=== PATIENT | male | born 1975 | race Caucasian/White ===

== ENCOUNTER 2017-02-04 14:32 | Outpatient (CLI) | payer MEDICAID | END 2017-02-04 23:59 | DX: R63.4 Abnormal weight loss (principal); F41.1 Generalized anxiety disorder; F32.9 Major depressive disorder, single episode, unspecified ==

== ENCOUNTER 2017-03-22 15:00 | Outpatient (CLI) | payer MEDICAID ==
--- NOTE | 2017-03-22 17:02 | Ultrasound Report ---
RIGHT UPPER QUADRANT ULTRASOUND: 03/22/2017 CLINICAL INDICATION: IBS. TECHNIQUE: Real-time scanning was performed with customer response representative static images obtained. The liver measures 13.1 cm. Hepatic echotexture is normal. No intrahepatic biliary dilatation or fo ariana parenchymal lesion is present. The common bile duct measures 3 mm. The gallbladder is normal. The right kidney measures 10.6 cm, and demonstrates no hydronephrosis. No free fluid is present. IMPRESSION: NORMAL RIGHT UPPER QUADRANT ULTRASOUND. JOB #: [id number] EXT JOB #:[id number]
== END 2017-03-22 15:01 | disposition home or self-care (01) ==
LOC: DI 15:00
PROVIDERS: ATTEND Physician Assistant Medical
DX: K58.9 Irritable bowel syndrome, unspecified (principal); R11.0 Nausea
CPT/HCPCS: 76705

== ENCOUNTER 2017-03-28 13:22 | Outpatient (CLI) | payer MEDICAID ==
[2017-03-28] MEDS ORDERED: SINCALIDE IV ONE (17:01)
[2017-03-28] MEDS ORDERED: SODIUM CHLORIDE 0.9% IV ONE (17:01)
--- NOTE | 2017-03-29 08:15 | Nuclear Medicine Report ---
EXAM: HEPATOBILIARY SCAN WITH CCK/KINEVAC ADMINISTRATION EXAM DATE: 03/28/2017 12:59 PM. CLINICAL HISTORY: NAUSEA. COMPARISON: 03/22/2017. TECHNIQUE: Following the intravenous administration of 5 mCi of Tc99m Mebrofenin, a hepatobiliary sca n was done centered on the liver and gallbladder in multiple sequential images and projections. Following the intravenous administration of 1.1 mcg of CCK/ Kinevac over the course of approximately 45 minutes, dynamic imaging was done and the gallbladder ejection fraction was calculated. FINDINGS: Normal extraction of tracer from the blood pool indicating normal hepatocellular function. The liver size and shape is grossly within normal limits. Appearance of tracer in the biliary tree as early as 10 minutes, within normal limits. Appearance of tracer in the gallbladder as early as 20 minutes, within normal limits, with good progr ession of filling throughout the remainder of the initial hour. Appearance of tracer in the small bowel as early as 20 minutes, within normal limits. With CCK administration, the gallbladder demonstrates an effective contraction. The gallbladder eject ion fraction is calculated to be 60%, well above the lower limit of normal of 40% . No evidence of enteric reflux into the stomach. No significant collection of tracer remaining in the common bile duct by the end of the study. IMPRESSION: 1. Normal uptake and excretion of activity by the liver. 2. Normal filling of the gallbladder and excretion into the bowel. 3. Normal gallbladder ejection fraction of 60%. [facility] Referring Provider Line: [phone] SITE ID: [id number]
== END 2017-03-28 13:23 | disposition home or self-care (01) ==
LOC: DI 13:22
PROVIDERS: ATTEND Physician Assistant Medical
DX: R11.0 Nausea (principal)
CPT/HCPCS: 78227; A9537

== ENCOUNTER 2018-02-01 16:45 | Outpatient (CLI) | payer MEDICAID ==
--- NOTE | 2018-02-02 11:08 | CT Report ---
EXAM: CT BONY PELVIS WITHOUT CONTRAST EXAM DATE: 02/01/2018 04:56 PM. CLINICAL HISTORY: Bone lesion. COMPARISON: 04/29/2017. TECHNIQUE: Thin-section axial images were acquired of the pelvis without contrast. Post-processing: C oronal and sagittal reformats. Other: None. In accordance with CT protocol optimization, one or more of the following dose reduction techniques w ere utilized for this exam: automated exposure control, adjustment of mA and/or KV based on patient s ize, or use of iterative reconstructive technique. FINDINGS: Bones: Again seen are 2 bone lesions in the right ilium: 1. 0.9 cm well-circumscribed lytic lesion adjacent to right SI joint with sclerotic margin. Unchanged from prior. Appears nonaggressive. 2. 0.9 x 0.7 cm dense sclerotic bone island right ilium near anterior border of SI joint, stable. No new or suspicious bony lesions are seen. Few additional tiny bone islands in the bilateral proxima l femurs are densely sclerotic and stable. Sacroiliac Joints: No widening, erosions, or sclerosis. Symphysis Pubis: Unremarkable. Right Hip: The joint space is preserved. No calcified loose bodies. Left Hip: The joint space is preserved. No calcified loose bodies. Musculature: Normal. No fatty atrophy. Pelvic Cavity: The visualized bowel, bladder, and reproductive organs are unremarkable on this noncon trast exam. Other: No lymphadenopathy. No free air or free fluid. The other visualized soft tissues are unremarka ble. IMPRESSION: 1. Several small bone islands in the pelvis and proximal femurs are densely sclerotic and stable sinc e prior. These appear nonaggressive. 2. Well-circumscribed subcortical lytic lesion right ilium adjacent to SI joint with sclerotic margin is also stable from prior. Differential includes degenerative subchondral cyst versus old posttrauma tic or postinflammatory lesion. [facility] Referring Provider Line: [phone] SITE ID: [id number]
== END 2018-02-01 16:46 | disposition home or self-care (01) ==
LOC: DI 16:45
PROVIDERS: ATTEND Physician Assistant Medical
DX: M89.9 Disorder of bone, unspecified (principal)
CPT/HCPCS: 72192

== ENCOUNTER 2018-08-22 14:53 | Emergency (ER) | payer MEDICAID ==
[2018-08-22 15:10] VITALS: BP 105/89
--- NOTE | 2018-08-22 15:27 | ED Physician Documentation ---
History of Present Illness - Stated complaint Stated Complaint: NAUSEA/CRAMPING/CONSTIPATION/LIGHTHEADEDNESS - Chief complaint Chief Complaint: General - History obtained from History obtained from: Patient - History of Present Illness Timing: Other (ongoing for several years) Pain level max: 4 Pain level now: 0 Improved by: nothing Worsened by: nothing - Additonal information Additional information: Patient is a 43-year-old male who presents to the emergency department with multiple vague symptoms. He states that he has had abdominal cramping and nausea for the last month or so. He states he has felt tired and weak for the past several years. Has seen several doctors and had multiple tests run with no cause found. He does have a history of depression and anxiety, used to be on Effexor and Celexa, but stopped this quite a while ago. He states he still feels depressed at times. Is not currently suicidal or homicidal. He is not on any medications currently. No allergies to medication. His main issue today is intermittent nausea. Review of Systems Ten Systems: 10 systems reviewed and negative Constitutional: denies: Fever, Chills Ears: denies: Ear pain Nose: denies: Rhinorrhea / runny nose, Congestion GI: denies: Vomiting, Diarrhea Skin: denies: Rash Musculoskeletal: denies: Neck pain, Back pain Neurologic: denies: Headache PD PAST MEDICAL HISTORY - Past Medical History Past Medical History: Yes Cardiovascular: None Respiratory: None Neuro: None Endocrine/Autoimmune: None HEENT: None Psych: Depression, Anxiety Musculoskeletal: Osteoarthritis Other Past Medical History: gastrointestinal problems, weight loss, low white blood cell count, ibs - Past Surgical History Past Surgical History: No - Present Medications Home Medications: Ambulatory Orders Medication Instructions Recorded Confirmed Ondansetron Odt [Zofran] 4 mg TL Q6H PRN #10 tablet 08/22/18 - Allergies Allergies/Adverse Reactions: Allergies Allergy/AdvReac Type Severity Reaction Status Date / Time No Known Drug Allergies Allergy Verified 08/22/18 15:10 - Social History Does the pt smoke?: No Smoking Status: Never smoker Does the pt drink ETOH?: No Does the pt have substance abuse?: No - Immunizations Immunizations are current?: Yes - POLST Patient has POLST: No PD ED PE NORMAL - Vitals Vital signs reviewed: Yes - General General: Alert and oriented X 3 - HEENT HEENT: Moist mucous membranes - Neck Neck: Supple, no meningeal sign - Cardiac Cardiac: RRR, Strong equal pulses - Respiratory Respiratory: No respiratory distress, Clear bilaterally - Abdomen Abdomen: Normal bowel sounds, Soft, Non tender, Non distended - Derm Derm: Warm and dry - Neuro Neuro: Alert and oriented X 3 - Psych Psych: Normal mood, Normal affect Results - Vitals Vitals: Vital Signs - 24 hr 08/22/18 14:58 Temperature 36 C L Heart Rate 60 Respiratory 16 Rate Blood Pressure 105/89 H O2 Saturation 99 Oxygen O2 Source Room air - Labs Labs: Laboratory Tests 08/22/18 08/22/18 08/22/18 15:29 15:29 15:29 WBC 3.3 L RBC 4.60 L Hgb 15.7 Hct 43.5 MCV 94.4 H MCH 34.1 H MCHC 36.1 H RDW 11.7 L Plt Count 203 MPV 9.6 Neut # (Auto) 2.1 Lymph # (Auto) 0.8 L [place] # (Auto) 0.2 Eos # (Auto) 0.1 Baso # (Auto) 0.0 Absolute Nucleated RBC 0.00 Nucleated RBC % 0.1 Sodium 135 Potassium 4.1 Chloride 100 L Carbon Dioxide 27 Anion Gap 8.0 BUN 9 Creatinine 1.0 Estimated GFR (MDRD) 82 L Glucose 84 Calcium 9.2 Total Bilirubin 0.9 AST 20 ALT 15 Alkaline Phosphatase 90 Total Protein 7.3 Albumin 4.6 Globulin 2.7 Albumin/Globulin Ratio 1.7 Lipase 30 TSH 0.79 Free T4 0.86 PD MEDICAL DECISION MAKING - ED course Complexity details: reviewed results, re-evaluated patient, considered differential, d/w patient ED course: No emergency medical condition at this time. Normal laboratory values. No vomiting. Will prescribe Zofran for home. We will have him follow-up with his doctor to discuss depression anxiety medication. Possible somatization of his depression causing his symptoms? He is well-appearing, nontoxic. Patient counseled regarding signs and symptoms for which I believe and urgent re- evaluation would be necessary. Patient with good understanding of and agreement to plan and is comfortable going home at this time This document was made in part using voice recognition software. While efforts are made to proofread this document, sound alike and grammatical errors may occur. Departure - Departure Disposition: Home, Self Care Clinical Impression: Nausea Condition: Good Instructions: ED Nausea Vomiting Follow-Up: Ailyn Keith PA-C [Primary Care Provider] - Within 1 week Prescriptions: Ondansetron Odt [Zofran] 4 mg TL Q6H PRN #10 tablet PRN Reason: Nausea / Vomiting Comments: return if you worsen. Follow up with your doctor for further care. Your doctor will likely want to start you back on an antidepressant and see if this helps your symptoms. Discharge Date/Time: 08/22/18 16:14
[2018-08-22 15:48] LABS: ALBUMIN 4.6 g/dL (3.2-5.5); ALBUMIN/GLOBULIN RATIO 1.7 (1.0-2.2); BILIRUBIN,TOTAL 0.9 mg/dL (0.2-1.0); CALCIUM 9.2 mg/dL (8.5-10.3); TOTAL PROTEIN 7.3 g/dL (6.7-8.2)
[2018-08-22 15:53] LABS: EOSINOPHILS # (AUTO) 0.1 10^3/uL (0.0-0.7); EOSINOPHILS % (AUTO) 2.3 %; HGB - HEMOGLOBIN 15.7 g/dL (14.0-18.0); LYMPHOCYTES # (AUTO) 0.8 10^3/uL (1.5-3.5); LYMPHOCYTES % (AUTO) 26.1 %; MEAN CORPUSCULAR HEMOGLOBIN 34.1 pg (27.0-31.0); MEAN CORPUSCULAR HGB CONC 36.1 g/dL (32.0-36.0); MEAN CORPUSCULAR VOLUME 94.4 fL (80.0-94.0); MEAN PLATELET VOLUME 9.6 fL (7.4-11.4); MONOCYTES # (AUTO) 0.2 10^3/uL (0.0-1.0); MONOCYTES % (AUTO) 6.6 %; NEUTROPHILS # (AUTO) 2.1 10^3/uL (1.5-6.6); PLT - PLATELET COUNT 203 10^3/uL (130-450); RED CELL DISTRIBUTION WIDTH 11.7 % (12.0-15.0); WHITE BLOOD COUNT 3.3 x10^3/uL (4.8-10.8)
[2018-08-22 16:05] LABS: THYROID STIMULATING HORMONE 0.79 uIU/mL (0.34-5.60)
[2018-08-22 16:07] LABS: FREE T4 (FREE THYROXINE) 0.86 ng/dL (0.58-1.64)
== END 2018-08-22 16:14 | disposition home or self-care (01) ==
LOC: ED 14:53
DX: R11.0 Nausea (principal)
CPT/HCPCS: 36415; 80053; 83690; 84439; 84443; 85025; 99283

== ENCOUNTER 2022-12-15 07:34 | Emergency (ER) | payer MEDICAID ==
--- NOTE | 2022-12-15 07:55 | ED Physician Documentation ---
PD HPI CHEST PAIN - Stated complaint Stated Complaint: CHEST TIGHTNESS/HEAVINESS - History obtained from History obtained from: Patient - History of Present Illness Timing - onset: How many months ago (he has noted intermittent lower chest/epi gastric aching pain mainly when lying down the past 3 months, more noted the past 3 days. has not had any exertional chest pain, with activity level including walking up stairs and around house. no aerobic exercise per se.) Timing - onset during: Rest. No: Light activity, Exertion Timing - duration: Minutes (has only felt it when lying down. Improves when sits up. no pain leaning forward.) Timing - details: Intermittant Quality: Aching Location: Substernal, Epigastric Radiation: No: Jaw, Neck, Back Improved by: Other (sitting up) Worsened by: Position (only with lying down). No: Inspiration, Eating Associated symptoms: Feeling faint / dizzy (at times when gets up. otherwise no problems with usual daily activity.). No: Shortness of air, Nausea, Palpitations Similar symptoms before: Has not had sx before Recently seen: Not recently seen Review of Systems Constitutional: denies: Fever, Chills Nose: denies: Rhinorrhea / runny nose, Congestion Throat: denies: Sore throat Cardiac: reports: Chest pain / pressure. denies: Palpitations, Pedal edema, Calf pain Respiratory: denies: Dyspnea, Cough, Wheezing GI: denies: Nausea, Vomiting, Diarrhea, Bloody / black stool Skin: denies: Rash, Lesions Musculoskeletal: denies: Extremity swelling Endocrine: denies: Weight loss PD PAST MEDICAL HISTORY - Past Medical History Cardiovascular: None Respiratory: None Neuro: None Endocrine/Autoimmune: None HEENT: None Psych: Depression, Anxiety Musculoskeletal: Osteoarthritis - Past Surgical History Past Surgical History: No - Present Medications Home Medications: Ambulatory Orders Medication Instructions Recorded Confirmed Famotidine [Pepcid] 20 mg PO DAILY #20 tablet 12/15/22 Sucralfate [Carafate] 1 gm PO ACHS #30 tablet 12/15/22 - Allergies Allergies/Adverse Reactions: Allergies Allergy/AdvReac Type Severity Reaction Status Date / Time No Known Drug Allergies Allergy Verified 12/15/22 07:57 - Social History Does the pt smoke?: No Smoking Status: Never smoker Does the pt drink ETOH?: No Does the pt have substance abuse?: No - Immunizations Immunizations are current?: Yes - POLST Patient has POLST: No PD ED PE NORMAL - Vitals Vital signs reviewed: Yes - General General: Alert and oriented X 3, No acute distress, Well developed/nourished - HEENT HEENT: Pharynx benign - Neck Neck: Supple, no meningeal sign, No adenopathy - Cardiac Cardiac: RRR, No murmur - Respiratory Respiratory: Clear bilaterally, Other (no chestwall tenderness. ) - Abdomen Abdomen: Soft, Non distended, No organomegaly, Other (minimally tender epigastric area without guarding nor percussion tenderness. ) Results - Vitals Vitals: Oxygen O2 Source Room air - EKG (time done) 07;47 Rate: Rate (enter#) (66) Rhythm: NSR [place]: Normal Intervals: Normal ND QRS: Normal Ischemia: Normal ST segments, T wave inversion (AVL only, otherwise T waves concordant with QRS vector. ). No: ST elevation c/w ischemia, ST depression - Labs Labs: Laboratory Tests 12/15/22 12/15/22 12/15/22 08:33 08:33 08:33 WBC 3.3 L RBC 4.66 L Hgb 15.0 Hct 43.4 MCV 93.1 MCH 32.2 H MCHC 34.6 RDW 11.6 L Plt Count 197 MPV 11.7 H Neut # (Auto) 1.8 Lymph # (Auto) 1.0 L Mc[place] # (Auto) 0.2 Eos # (Auto) 0.2 Baso # (Auto) 0.0 Absolute Nucleated RBC 0.00 Nucleated RBC % 0.0 Sodium 138 Potassium 3.6 Chloride 103 Carbon Dioxide 29 Anion Gap 6.0 BUN 7 Creatinine 1.0 Estimated GFR (MDRD) 81 L Glucose 84 Calcium 8.9 Magnesium 2.2 Total Bilirubin 0.9 AST 18 ALT 14 Alkaline Phosphatase 86 Troponin I High Sens 3.7 B-Natriuretic Peptide Total Protein 6.3 L Albumin 3.7 Globulin 2.6 Albumin/Globulin Ratio 1.4 Lipase 35 TSH 12/15/22 12/15/22 08:33 08:33 WBC RBC Hgb Hct MCV MCH MCHC RDW Plt Count MPV Neut # (Auto) Lymph # (Auto) [place] # (Auto) Eos # (Auto) Baso # (Auto) Absolute Nucleated RBC Nucleated RBC % Sodium Potassium Chloride Carbon Dioxide Anion Gap BUN Creatinine Estimated GFR (MDRD) Glucose Calcium Magnesium Total Bilirubin AST ALT Alkaline Phosphatase Troponin I High Sens B-Natriuretic Peptide 15 Total Protein Albumin Globulin Albumin/Globulin Ratio Lipase TSH 2.98 - Rads (name of study) chest xray Radiology: Prelim report reviewed, EMP read indepedently (no acute abnormality), See rad report upper abd U/S Radiology: Prelim report reviewed, See rad report, Other ([facility] states normal U/S) PD Medical Decision Making - ED course Complexity details: considered differential (nonexertional chest pressure that is strictly positional to lying down. Consider gerd as possibility. can assess for CHF/ID/effusion/enlarged heart/gllbladder problem with testing. ), d/w sheridane nt Reviewed Lab Results: ECG ordered and reviewed without obvious ischemic changes. Isolated dyscordant t wave inversion AVL. Chest xray okay reivewed by me. Ultrasound rUQ is normal. Labs including troponin and BNP to evaluate heart chf/ID are both normal. Electrolytes are normal. Lipase is normal exlcuding pancreatitis. Can trial some PPI and antacids and see if improves. I feel concerning/serious causes are excluded with testing done so far. Departure - Departure Disposition: 01 Home, Self Care Clinical Impression: Chest discomfort Condition: Stable Instructions: ED Chest Pain Atypical Unkn Cause Prescriptions: Sucralfate [Carafate] 1 gm PO ACHS #30 tablet Famotidine [Pepcid] 20 mg PO DAILY #20 tablet Comments: Your chest x-ray is clear without any signs of fluid in or around the lungs. Heart size looks appropriate. Your EKG is normal. Blood test looking at signs of heart injury and heart failure are negative. Your blood count and blood sugar and electrolytes are good as well. Your ultrasound did not show any signs of gallbladder or liver pancreas abnormalities. At this point, this covers a large number of more significant causes of the chest discomfort with laying down. It does not exactly sound heart/anginal as it is not exertional. Consideration at this point would be for possible reflux/esophagitis. Try to position your sleep with the head elevated a little bit. I realize that usually comes to flat during the night. We can also try reducing the acidity of the stomach contents and see if its less irritative and also coat the esophagus periodically through the day. Famotidine twice daily for the next several days and then once daily for a few weeks. Use the sucralfate/Carafate during the day and before bedtime at least, if not 4 times a day initially. See if this combination helps with your symptoms over the next week or so. Call your primary care office for a follow-up appointment on this. Commonly they will try to get a follow-up in the shorter-term after ER visit like this. See if you can be seen in the next week or 2 and see how well you are doing with the above measures and if any further testing or evaluation is needed if not better. I sent your prescription to [facility] pharmacy. Discharge Date/Time: 12/15/22 11:39
[2022-12-15 08:42] LABS: BASOPHILS % (AUTO) 1.2 %; EOSINOPHILS # (AUTO) 0.2 10^3/uL (0.0-0.7); EOSINOPHILS % (AUTO) 6.7 %; HCT - HEMATOCRIT 43.4 % (42.0-52.0); LYMPHOCYTES % (AUTO) 31.5 %; MEAN CORPUSCULAR HEMOGLOBIN 32.2 pg (27.0-31.0); MEAN CORPUSCULAR HGB CONC 34.6 g/dL (32.0-36.0); MEAN CORPUSCULAR VOLUME 93.1 fL (80.0-94.0); MEAN PLATELET VOLUME 11.7 fL (7.4-11.4); MONOCYTES # (AUTO) 0.2 10^3/uL (0.0-1.0); MONOCYTES % (AUTO) 5.8 %; NEUTROPHILS # (AUTO) 1.8 10^3/uL (1.5-6.6); NEUTROPHILS % (AUTO) 54.8 %; PLT - PLATELET COUNT 197 10^3/uL (130-450); RED BLOOD COUNT 4.66 10^6/uL (4.70-6.10); RED CELL DISTRIBUTION WIDTH 11.6 % (12.0-15.0); WHITE BLOOD COUNT 3.3 x10^3/uL (4.8-10.8)
[2022-12-15 09:02] LABS: ALBUMIN 3.7 g/dL (3.2-5.5); ALBUMIN/GLOBULIN RATIO 1.4 (1.0-2.2); BILIRUBIN,TOTAL 0.9 mg/dL (0.2-1.0); CALCIUM 8.9 mg/dL (8.5-10.3); MAGNESIUM 2.2 mg/dL (1.7-2.8); POTASSIUM 3.6 mmol/L (3.5-5.0); TOTAL PROTEIN 6.3 g/dL (6.7-8.2)
--- NOTE | 2022-12-15 09:25 | XRAY Report ---
PROCEDURE: Chest 1 View X-Ray INDICATIONS: Chest pain TECHNIQUE: One view of the chest was acquired. COMPARISON: None. FINDINGS: Surgical changes and devices: None. Lungs and pleura: No pleural effusions or pneumothorax. Lungs are clear. Mediastinum: Mediastinal contours appear normal. Heart size is normal. Bones and chest wall: No suspicious bony lesions. Overlying soft tissues appear unremarkable. IMPRESSION: No acute pulmonary process. Reviewed by: Kim Larson MD on 12/15/2022 9:23 AM [facility] Approved by: Kim Larson MD on 12/15/2022 9:23 AM [facility] Station ID: [id number]
[2022-12-15] MEDS ORDERED: MAG HYDROX/AL HYDROX/SIMETH 30 ML UDC PO STA (10:55)
[2022-12-15] MEDS ORDERED: FAMOTIDINE 20 MG TABLET PO STA (10:55)
--- NOTE | 2022-12-15 11:06 | Ultrasound Report ---
PROCEDURE: Abdomen Limited INDICATIONS: chest discomfort with lying down TECHNIQUE: Real-time scanning was performed of the abdominal and retroperitoneal organs, with image documentatio n. COMPARISON: None. FINDINGS: Liver: Liver is normal in size and increased in echotexture. Gallbladder: No stones. Wall thickness is normal measuring 1.3 mm. Biliary ducts: Intrahepatic bile ducts are non-dilated. Extrahepatic bile duct caliber measures 3.5 mm. Normal is 6-7 mm or less in diameter, or 10 mm or less post-cholecystectomy. Pancreas: Visualized portions of the pancreas are sonographically normal. Kidneys: Right kidney measures 10.3 cm long. No hydronephrosis or nephrolithiasis. No solid masses . IMPRESSION: Hepatic steatosis. Unremarkable exam. Reviewed by: Kim Larson MD on 12/15/2022 11:05 AM [facility] Approved by: Kim Larson MD on 12/15/2022 11:05 AM [facility] Station ID: [id number]
[2022-12-15 11:38] VITALS: BP 118/78
== END 2022-12-15 11:39 | disposition home or self-care (01) ==
LOC: ED 07:34
DX: R07.89 Other chest pain (principal)
CPT/HCPCS: 36415; 71045; 76705; 80053; 83690; 83735; 83880; 84443; 84484; 85025; 93005; 99284; A9270